=== PATIENT | female | born 1970 ===

== ENCOUNTER → 2018-11-10 21:23 | Outpatient (REF) | payer OTHER, SELFPAY ==
[2018-11-11 00:42] LABS: Urine N gonorrhoeae NOT DETECTED
[2018-11-13 15:05] LABS: HSV 2 IGG AB < 0.90 index (< 0.90); HSV1IGG < 0.90 index (< 0.90); RPR Screen Nonreactive (Nonreactive)
[2018-11-13 17:09] LABS: HIV Ag/Ab, 4th Gen Nonreactive (Nonreactive)
[2018-11-16 11:48] LABS: Urine Chlamydia DETECTED
== END ==
LOC: LAB 21:23
PROVIDERS: Visit Provider Naturopath
DX: Z00.00 Encounter for general adult medical examination without abnormal findings (principal); Z11.3 Encounter for screening for infections with a predominantly sexual mode of transmission
CPT/HCPCS: 36415; 83001; 86592; 86695; 86696; 86703; 87491; 87591